=== PATIENT | male | born 1990 | race African-American/Black ===

== ENCOUNTER 2024-01-26 20:29 | Emergency (ER) | payer OTHER ==
[~2024-01-26] VITALS: Ht 180.3 cm; Wt 82.0 kg
[2024-01-26 20:31] VITALS: BP 173/122; PULSE 92; RESP 16; TEMP 98; O2SAT 99
== END 2024-01-27 05:20 | disposition left against medical advice (07) ==
LOC: ER 20:29
DX: R10.9 Unspecified abdominal pain (principal); Z53.21 Procedure and treatment not carried out due to patient leaving prior to being seen by health care provider
CPT/HCPCS: 99281

== ENCOUNTER 2024-07-31 23:50 | Emergency (ER) | payer MEDICAID ==
[~2024-07-31] VITALS: Ht 180.3 cm; Wt 87.0 kg
[2024-08-01 00:09] VITALS: TEMP 97; O2SAT 100
[2024-08-01] MEDS: KETOROLAC 30MG/ML VIAL IV STA (01:15)
[2024-08-01] MEDS: METOCLOPRAMIDE HCL 10MG/2ML VIAL IV ONE (01:15)
[2024-08-01] MEDS: SODIUM CHLORIDE 0.9% 1,000 ML IV ONE (01:15)
[2024-08-01 01:21] VITALS: BP 210/143; PULSE 87; RESP 15; O2SAT 100
== END 2024-08-01 02:20 | disposition left against medical advice (07) ==
LOC: ER 23:50
DX: R51.9 Headache, unspecified (principal); R11.2 Nausea with vomiting, unspecified; I10 Essential (primary) hypertension
CPT/HCPCS: 99284; 96361; 96374; 96375; J1885; J2765; J7030; Z7610 ×2